=== PATIENT | male | born 1980 | race Caucasian/White ===

== ENCOUNTER 2016-08-02 14:35 | Emergency (ER) | payer OTHER ==
[~2016-08-02 14:35] MED LIST: FLEXERIL10 M1 PO; METHADONE HCL10 MG PO; NAPROSYN500 MG PO; NAPROXEN
== END 2016-08-02 14:55 | disposition home or self-care (01) ==
LOC: SED 14:35
DX: S39.012A Strain of muscle, fascia and tendon of lower back, initial encounter (principal); F17.210 Nicotine dependence, cigarettes, uncomplicated; X50.9XXA Other and unspecified overexertion or strenuous movements or postures, initial encounter
CPT/HCPCS: 96372; 99283; J2360

== ENCOUNTER 2017-01-01 21:44 | Emergency (ER) | payer OTHER ==
[~2017-01-01] VITALS: Ht 175.3 cm; Wt 84.8 kg
== END 2017-01-01 22:23 | disposition home or self-care (01) ==
LOC: SED 21:44
DX: S10.96XA Insect bite of unspecified part of neck, initial encounter (principal); F17.210 Nicotine dependence, cigarettes, uncomplicated; W57.XXXA Bitten or stung by nonvenomous insect and other nonvenomous arthropods, initial encounter
CPT/HCPCS: 99282